=== PATIENT | male | born 1995 | race Caucasian/White ===

== ENCOUNTER 2021-06-21 07:27 | Emergency (ER) | payer BC ==
[2021-06-21] MEDS ORDERED: Ketorolac 30 MG/ML SDV IM ONE (08:07)
--- NOTE | 2021-06-21 08:11 | EDM.PDOC ---
ED HPI GENERAL MEDICAL PROBLEM - General Chief Complaint: Back Pain or Injury Stated Complaint: BACK PAIN Time Seen by Provider: 06/21/21 08:07 Source of Information: Reports: Patient History Limitations: Reports: No Limitations - History of Present Illness INITIAL COMMENTS - FREE TEXT/NARRATIVE: Patient is a 25-year-old male presents today for back pain. 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 He denies any urinary incontinence or saddle anesthesia leg numbness or weakness he denies any IV drug use. Denies any fever chills. Pain is made worse whenever he turns or moves. He tried Tylenol Motrin lidocaine patches at home without much relief. Patient denies any other complaints. 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: Acetaminophen, Heat Therapy, NSAIDS Bilateral Middle Back Pain Score (Numeric/FACES): 6 - Related Data Allergies Allergy/AdvReac Type Severity Reaction Status Date / Time No Known Allergies Allergy Verified 06/21/21 07:41 Home Meds: Home Meds Desvenlafaxine [Desvenlafaxine ER] 50 mg PO DAILY 06/21/21 [History] Methylphenidate HCl [Methylphenidate ER] 18 mg PO DAILY 06/21/21 [History] hydrOXYzine HCL [Hydroxyzine HCl] 25 mg PO TID 06/21/21 [History] Past Medical History Gastrointestinal History: Reports: GERD Psychiatric History: Reports: Anxiety, Depression - Infectious Disease History Infectious Disease History: Reports: None - Past Surgical History GI Surgical History: Reports: Colonoscopy, EGD Social & Family History - Family History Family Medical History: No Pertinent Family History - Tobacco Use Tobacco Use Status *Q: Current Every Day Tobacco User Years of Tobacco use: 5 Packs/Tins Daily: 2 - Caffeine Use Caffeine Use: Reports: Coffee, Energy Drinks, Soda, Tea - Recreational Drug Use Recreational Drug Use: No ED ROS GENERAL - Review of Systems Review Of Systems: See Below Constitutional: Reports: No Symptoms HEENT: Reports: No Symptoms Respiratory: Reports: No Symptoms Cardiovascular: Reports: No Symptoms Endocrine: Reports: No Symptoms GI/Abdominal: Reports: No Symptoms : Reports: No Symptoms Musculoskeletal: Reports: Back Pain Skin: Reports: No Symptoms Neurological: Reports: No Symptoms Psychiatric: Reports: No Symptoms Hematologic/Lymphatic: Reports: No Symptoms Immunologic: Reports: No Symptoms ED EXAM,LOWER BACK PAIN/INJURY - Physical Exam Exam: See Below Exam Limited By: No Limitations General Appearance: Alert, WD/WN, No Apparent Distress Eye Exam: Bilateral Eye: EOMI, PERRL Throat/Mouth: Normal Inspection Head: Atraumatic Neck: Normal Inspection, Supple, Non-Tender Respiratory/Chest: No Respiratory Distress GI/Abdominal: Normal Bowel Sounds Back Exam: Normal Inspection, Full Range of Motion, Paraspinal Tenderness. No: Vertebral Tenderness Extremities: Normal Inspection, Normal Range of Motion, Non-Tender Neurological: Alert, Normal Mood/Affect, CN II-XII Intact, Oriented x 3 Course - Vital Signs Last Recorded V/S: Last Vital Signs Temp 97.4 F 06/21/21 07:47 Pulse 67 06/21/21 09:53 Resp 16 06/21/21 09:53 BP 121/76 06/21/21 09:53 Pulse Ox 98 06/21/21 09:53 - Orders/Labs/Meds Orders: Active Orders 24 hr Category Date Time Status Cyclobenzaprine [Flexeril] Med 06/21/21 09:00 Active 5 mg PO DAILY Medication Orders Cyclobenzaprine HCl (Cyclobenzaprine 10 Mg Tab) 5 mg PO DAILY SANTIAGO Last Admin: 06/21/21 09:04 Dose: 5 mg Documented by: CHIKIS Meds: Medications Generic Name Dose Route Start Last Admin Trade Name Freq PRN Reason Stop Dose Admin Cyclobenzaprine HCl 5 mg 06/21/21 09:00 06/21/21 09:04 Cyclobenzaprine 10 Mg Tab PO 5 mg DAILY SANTIAGO Administration Discontinued Medications Generic Name Dose Route Start Last Admin Trade Name Freq PRN Reason Stop Dose Admin Ketorolac Tromethamine 30 mg 06/21/21 08:07 06/21/21 08:22 Ketorolac 30 Mg/Ml Sdv IM 06/21/21 08:08 30 mg ONETIME ONE Administration - Re-Assessments/Exams Free Text/Narrative Re-Assessment/Exam: 06/21/21 09:58 Patient back pain improved will be discharged home with pain meds. Departure - Departure Time of Disposition: 09:58 Disposition: Home, Self-Care 01 Condition: Good Clinical Impression: Lumbago - Discharge Information *PRESCRIPTION DRUG MONITORING PROGRAM REVIEWED*: Not Applicable *COPY OF PRESCRIPTION DRUG MONITORING REPORT IN PATIENT RANDALL: Not Applicable Instructions: Acute Back Pain, Adult Referrals: PCP,None [Primary Care Provider] - Forms: ED Department Discharge Additional Instructions: You were seen today for back pain likely related to muscle skeletal injury suffered at work. Recommend you continue to take pain meds as needed for an stretch and heat area as needed. If you have any other concerning signs or symptoms please return to the ED. The following information is given to patients seen in the emergency department who are being discharged to home. This information is to outline your options for follow-up care. We provide all patients seen in our emergency department wit h a follow-up referral. The need for follow-up, as well as the timing and circumstances, are variable depending upon the specifics of your emergency department visit. If you don't have a primary care physician on staff, we will provide you with a referral. We always advise you to contact your personal physician following an emergency department visit to inform them of the circumstance of the visit and for follow-up with them and/or the need for any referrals to a consulting specialist. The emergency department will also refer you to a specialist when appropriate. This referral assures that you have the opportunity for follow-up care with a specialist. All of these measure are taken in an effort to provide you with optimal care, which includes your follow-up. Under all circumstances we always encourage you to contact your private physician who remains a resource for coordinating your care. When calling for follow-up care, please make the office aware that this follow-up is from your recent emergency room visit. If for any reason you are refused follow-up, please contact the [facility] Emergency Department at and asked to speak to the emergency department charge nurse. Please follow up with your primary care physician. If you do not have a primary care physician, see below: [facility] [address] [place] [id number] [facility] [address] [place] [address] Sepsis Event Note (ED) - Evaluation Sepsis Screening Result: No Definite Risk - Focused Exam Vital Signs: Vital Signs Temp Pulse Resp BP Pulse Ox 06/21/21 09:53 67 16 121/76 98 06/21/21 07:47 97.4 F 72 18 133/79 96 - My Orders Last 24 Hours: My Active Orders 06/21/21 09:00 Cyclobenzaprine [Flexeril] 5 mg PO DAILY - Assessment/Plan Last 24 Hours: My Active Orders 06/21/21 09:00 Cyclobenzaprine [Flexeril] 5 mg PO DAILY Plan: Patient is a 25-year-old male presents today for low to mid back pain. On exam patient pain is mostly over the paraspinal muscles. Provide pain control and reassess.
[2021-06-21] MEDS ORDERED: Cyclobenzaprine 10 MG Tab PO SCH (09:00)
[2021-06-21] MEDS ORDERED: Cyclobenzaprine 5 MG Tab PO SCH (09:00)
== END 2021-06-21 10:15 | disposition home or self-care (01) ==
LOC: MW.ED 07:27
DX: M54.50 Low back pain, unspecified (principal); Z72.0 Tobacco use
CPT/HCPCS: 96372; 99283; A9270; J1885